=== PATIENT | female | born 1930 | race Caucasian/White ===

== ENCOUNTER 2016-10-20 00:24 | Emergency (ER) | payer OTHER ==
[~2016-10-20] VITALS: Ht 167.6 cm; Wt 63.5 kg
--- NOTE | ~2016-10-20 | EKG ---
[place] [address] [facility] [place] [address] ELECTROCARDIOGRAM REPORT Name: THERESA SWIFT [id number] Admission: 10/20/16 Attend Phys: Discharge: 10/20/16 Date of : 34 Report #: [id number] THIS REPORT FOR: //name// [facility] ED Test Date: 2016-10-20 Test Time: 01:10:12 Pat Name: THERESA SWIFT Department: Room: Gender: F State [employer]: bienvenido wade : 1930 Requested By: Yas Walsh Order Number: [id number] MD: Zaid Rodriguez Measurements Intervals [place] Rate: 75 P: 0 AK: 123 QRS: -52 QRSD: 111 T: 10 QT: 403 QTc: 451 Interpretive Statements Sinus rhythm Atrial premature complexes Incomplete RBBB and LAFB No previous ECG available for comparison Electronically Signed On 10-21-2016 8:27:21 CDT by Zaid Rodriguez [email or web address] <ELECTRONICALLY SIGNED> By: Zaid Rodriguez MD, [facility] 10/21/16 0827 0110 0110 Zaid Rodriguez MD, FACC /EPI
[~2016-10-20 00:24] MED LIST: ACETAMINOPHEN325 M1 PO; ALLOPURINOL 30300 M2 PO; ALUM-MAG HYDRO360 ML PO; AMOXICILLIN 50500 M1 PO; ANASTROZOLE1 MG PO; APAP500 PO; ARIMIDEX1 MG PO; ARTHRITIS PAIN650 M2 PO; ASPIR 8181 MG PO; BACTRIM 400-801 EACH PO; BISACODYL SUPP10 MG RECTAL; CITRACAL + D E1 EACH PO; COLACE100 MG PO; COLCHICINE0.6 MG PO; COUMADIN 2.5MG2.5 M1; COUMADIN 5 MG TA5 M1 PO; COZAAR100 MG PO; DOCUSATE SODIU100 MG PO; EFFEXOR XR75 MG PO; FENOFIBRATE160 MG PO; FISH OIL 1,0001 EAC5 PO; HYDROCHLOROTH12.5 MG PO; HYDROCODONE-AP1 EAC6 PO; HYDROGEN PEROXIDE OTIC; KLOR-CON 1010 MEQ PO; LANOXIN 0.120.125 M1 PO; LORAZEPAM 0.50.5 MG PO; MAG-AL PLUS SUS30 ML PO; METOLAZONE 5 MG5 MG PO; MILK OF MA2400 MG/10 PO; MOM PO; NORCO 5-325 TA1 EACH PO; PHENERGAN 25 MG25 M1 PO; PREDNISONE 5 MG5 M1 PO; PROAIR HFA8.5 GM INH; RESTORIL15 MG PO; SENNA-S TABLET1 EACH PO; SYNTHROID100 MCG PO; SYNTHROID25 MCG PO; TOPROL XL50 MG PO; TRAZODONE HCL50 MG PO; TUMS PO; VENLAFAXIN75 MG/1 T2 PO; ZAROXOLYN 5MG TA5 MG PO
[2016-10-20 01:27] LABS: ABSOLUTE NEUTROPHILS 6.9 thou/uL (1.4-8.2); BASOPHILS 0.4 % (0.0-2.0); EOSINOPHILS 0.5 % (0.0-3.0); HEMOGLOBIN 10.7 gm/dL (12.0-15.0); LYMPHOCYTES 13.8 % (24.0-44.0); MCH 32.6 pg (26.0-34.0); MCHC 33.4 g/dL (28.0-37.0); MCV 97.6 fL (80.0-100.0); PLATELET COUNT 188 thou/uL (150-400); POLYS 79.3 % (36.0-66.0); RBC 3.28 mil/uL (4.20-5.00); RDW 15.1 % (10.5-14.5); WBC 8.6 thou/uL (4.0-11.0)
[2016-10-20 01:28] LABS: MANUAL DIFF NO
[2016-10-20 01:36] LABS: ANION GAP 10 mmol/L (7-16); BUN 31 mg/dL (7-18); CALCIUM 8.9 mg/dL (8.5-10.1); CHLORIDE 105 mmol/L (98-107); CO2 29 mmol/L (21-32); CREATININE 1.2 mg/dL (0.6-1.0); GLUCOSE 204 mg/dL (74-106); POTASSIUM 3.9 mmol/L (3.5-5.1); SODIUM 144 mmol/L (136-145)
[2016-10-20 01:47] LABS: ALBUMIN 3.4 g/dL (3.4-5.0); ALKALINE PHOSPHATASE 99 U/L (46-116); INR 1.7; NT-PRO BRAIN NAT PEPTIDE 1153 pg/mL (<300); PROTIME 17.2 Seconds (9.3-11.4); SGOT 21 U/L (15-37); SGPT 18 U/L (30-65); TOTAL BILIRUBIN 0.3 mg/dL (<0.1-1.0); TOTAL PROTEIN 7.6 g/dL (6.4-8.2); TROPONIN-I < 0.04 ng/mL (<0.04-0.07)
[2016-10-20 02:07] LABS: URINE BILIRUBIN NEGATIVE (Negative); URINE BLOOD TRACE (Negative); URINE COLOR YELLOW; URINE GLUCOSE-RANDOM* NEGATIVE (Negative); URINE KETONES NEGATIVE (Negative); URINE LEUKOCYTES-REFLEX NEGATIVE (Negative); URINE PROTEIN (DIPSTICK) TRACE (Negative); URINE UROBILINOGEN 0.2 E.U./dl (0.2-1.0)
[2016-10-20 03:36] VITALS: BP 137/69
== END 2016-10-20 03:37 | disposition home or self-care (01) ==
LOC: ER 00:24
PROVIDERS: Emergency Medicine
DX: S61.412A Laceration without foreign body of left hand, initial encounter (principal); S63.502A Unspecified sprain of left wrist, initial encounter; I48.91 Unspecified atrial fibrillation; E78.00 Pure hypercholesterolemia, unspecified; Z86.73 Personal history of transient ischemic attack (TIA), and cerebral infarction without residual deficits; Z90.89 Acquired absence of other organs; Z90.49 Acquired absence of other specified parts of digestive tract; Z90.710 Acquired absence of both cervix and uterus; Z88.5 Allergy status to narcotic agent; Z88.8 Allergy status to other drugs, medicaments and biological substances; Z87.891 Personal history of nicotine dependence